=== PATIENT | male | born 1985 | race American Indian/Alaskan Native ===

== ENCOUNTER 2018-02-16 13:17 | Emergency (ER) | payer MEDICAID ==
--- NOTE | 2018-02-16 13:57 | XRay Report ---
RIGHT ANKLE, 2 views: History: right ankle pain. Bone mineralization is normal. An oblique, mildly displaced fracture is identified in the distal shaft of the fibula. The distal tibia and talar dome are intact. Mild soft tissue swelling. IMPRESSION: Distal fibular fracture.
--- NOTE | 2018-02-16 14:29 | Emergency Department Report ---
ED Lower Extremity HPI - General Chief Complaint: Extremity Injury, Lower Stated Complaint: HIGH ANKLE SPRAIN Time Seen by Provider: 02/16/18 14:03 Source: patient Mode of arrival: Ambulatory Limitations: No Limitations - History of Present Illness Initial Comments: 32-year-old male past medical history bipolar disorder presents with complaint of right distal ankle pain. Patient states that while at a [employer] yesterday he lost balance tripped and hurt his distal right ankle. Did not hit his head or completely lose consciousness as per his history. Patient is currently awake alert and oriented 3 not in acute distress. Patient is ambulating well with a cane. Patient denies injuries to any other body parts. MD Complaint: leg injury -: Last night Injury: Ankle: Right Place: home Severity: moderate Severity scale (0 -10): 6 Context: fall Associated Symptoms: snap/pop sensation, swelling, able to partially bear weight - Related Data Home Medications Medication Instructions Recorded Confirmed Last Taken Cogentin 1 mg PO BID 12/10/14 12/10/14 07/28/14 risperiDONE [RisperDAL] 1 mg PO DAILY 12/10/14 12/10/14 07/28/14 Previous Rx's Medication Instructions Recorded Last Taken Type Albuterol Sulfate [Proventil HFA] 1 - 2 puff IH Q4H PRN #1 hfa.aer.ad 12/10/14 Unknown Rx Benztropine [Cogentin] 1 mg PO DAILY #30 tab 12/10/14 Unknown Rx Loratadine [Claritin] 10 mg PO DAILY #20 tablet 12/10/14 Unknown Rx Sodium Chloride/Sodium Bicarb 75 ml NS TID #1 spray 12/10/14 Unknown Rx [[place] Mist Saline [place]] risperiDONE [Risperdal] 1 mg PO QDAY #30 tab 12/10/14 Unknown Rx HYDROcodone/APAP 5-325 [[place] 1 each PO Q6HR PRN #12 tablet 02/16/18 Unknown Rx 5/325] Ibuprofen [Motrin] 800 mg PO Q8HR PRN #25 tablet 02/16/18 Unknown Rx Allergies Allergy/AdvReac Type Severity Reaction Status Date / Time No Known Allergies Allergy Unverified 12/10/14 00:12 ED Review of Systems ROS: Stated complaint: HIGH ANKLE SPRAIN Other details as noted in HPI Constitutional: denies: chills, fever Eyes: denies: eye pain, eye discharge, vision change ENT: denies: ear pain, throat pain Respiratory: denies: cough, shortness of breath, wheezing Cardiovascular: denies: chest pain, palpitations Endocrine: no symptoms reported Gastrointestinal: denies: abdominal pain, nausea, diarrhea Genitourinary: denies: urgency, dysuria Musculoskeletal: as per HPI. denies: back pain, joint swelling, arthralgia Skin: denies: rash, lesions Neurological: denies: headache, weakness, paresthesias Psychiatric: denies: anxiety, depression Hematological/Lymphatic: denies: easy bleeding, easy bruising ED Past Medical Hx - Past Medical History Hx Psychiatric Treatment: Yes (BIPOLAR) - Surgical History Additional Surgical History: right hip sx - Social History Smoking Status: Current Every Day Smoker Substance Use Type: Alcohol - Medications Home Medications: Home Medications Medication Instructions Recorded Confirmed Last Taken Type Albuterol Sulfate [Proventil HFA] 1 - 2 puff IH Q4H PRN #1 hfa.aer.ad 12/10/14 Unknown Rx Benztropine [Cogentin] 1 mg PO DAILY #30 tab 12/10/14 Unknown Rx Cogentin 1 mg PO BID 12/10/14 12/10/14 07/28/14 History Loratadine [Claritin] 10 mg PO DAILY #20 tablet 12/10/14 Unknown Rx Sodium Chloride/Sodium Bicarb 75 ml NS TID #1 spray 12/10/14 Unknown Rx [[place] Mist Saline [place]] risperiDONE [RisperDAL] 1 mg PO DAILY 12/10/14 12/10/14 07/28/14 History risperiDONE [Risperdal] 1 mg PO QDAY #30 tab 12/10/14 Unknown Rx HYDROcodone/APAP 5-325 [[place] 1 each PO Q6HR PRN #12 tablet 02/16/18 Unknown Rx 5/325] Ibuprofen [Motrin] 800 mg PO Q8HR PRN #25 tablet 02/16/18 Unknown Rx ED Physical Exam - General Limitations: No Limitations General appearance: alert, in no apparent distress - Head Head exam: Present: atraumatic, normocephalic - Eye Eye exam: Present: normal appearance, PERRL, EOMI - ENT ENT exam: Present: mucous membranes moist - Neck Neck exam: Present: normal inspection - Respiratory Respiratory exam: Present: normal lung sounds bilaterally. Absent: respiratory distress - Cardiovascular Cardiovascular Exam: Present: regular rate, normal rhythm. Absent: systolic murmur, diastolic murmur, rubs, gallop - GI/Abdominal GI/Abdominal exam: Present: soft, normal bowel sounds - Rectal Rectal exam: Present: deferred - Extremities Exam Extremities exam: Present: normal inspection - Expanded Lower Extremity Exam Right Knee exam: Present: normal inspection, full ROM Lower Leg exam: Present: tenderness, swelling, ecchymosis Ankle exam: Present: tenderness Neuro vascular tendon exam: Present: no vascular compromise (distal pulses strong to palpation) Gait: Positive: antalgic 1 - Pain on palpation here with slight ecchymosis lateral - Back Exam Back exam: Present: normal inspection - Neurological Exam Neurological exam: Present: alert, oriented X3, CN II-XII intact, normal gait - Psychiatric Psychiatric exam: Present: normal affect, normal mood - Skin Skin exam: Present: warm, dry, intact, normal color. Absent: rash ED Course Vital Signs 02/16/18 13:28 Temperature 98.8 F Pulse Rate 73 Respiratory 16 Rate Blood Pressure 128/79 O2 Sat by Pulse 95 Oximetry ED Lower Extremity MDM - Medical Decision Making A/P: Distal fibular fracture 1-case discussed with Dr. Romero, I will refer patient to outpatient follow-up with orthopedics 2-neurovascular exam right lower extremity clinically intact 3-posterior splint and crutches 4- motrin and [place] when necessary Critical care attestation.: If time is entered above; I have spent that time in minutes in the direct care of this critically ill patient, excluding procedure time. ED Disposition Clinical Impression: Fracture of distal end of right fibula Qualifiers: Encounter type: initial encounter Fracture type: closed Fracture morphology: other fracture Qualified Code(s): S82.831A - Other fracture of upper and lower end of right fibula, initial encounter for closed fracture Disposition: - TO HOME OR SELFCARE Is pt being admited?: No Does the pt Need Aspirin: No Condition: Stable Instructions: Leg Fracture (ED), Crutch Instructions (ED), Splint Care (ED) Prescriptions: HYDROcodone/APAP 5-325 [[place] 5/325] 1 each PO Q6HR PRN #12 tablet PRN Reason: Pain Ibuprofen [Motrin] 800 mg PO Q8HR PRN #25 tablet PRN Reason: Pain , Severe (7-10) Referrals: HENRI ROMERO MD [Staff Physician] - 3-5 Days Time of Disposition: 14:29
[2018-02-16] MEDS ORDERED: MOTRIN PO ONE (14:31)
[2018-02-16] MEDS ORDERED: NORCO 5/325 PO ONE (14:31)
[2018-02-16 15:02] VITALS: BP 126/72
== END 2018-02-16 15:00 | disposition home or self-care (01) ==
LOC: ED 13:17
DX: S82.831A Other fracture of upper and lower end of right fibula, initial encounter for closed fracture (principal); F17.200 Nicotine dependence, unspecified, uncomplicated; F31.9 Bipolar disorder, unspecified; Z79.899 Other long term (current) drug therapy; W01.0XXA Fall on same level from slipping, tripping and stumbling without subsequent striking against object, initial encounter; Y93.89 Activity, other specified; Y99.8 Other external cause status; Y92.019 Unspecified place in single-family (private) house as the place of occurrence of the external cause

== ENCOUNTER 2020-07-04 11:44 | Emergency (ER) | payer MEDICAID ==
[2020-07-04 11:59] VITALS: BP 146/100
== END 2020-07-04 12:00 | disposition left against medical advice (07) ==
LOC: ED 11:44
DX: M25.572 Pain in left ankle and joints of left foot (principal); Z53.21 Procedure and treatment not carried out due to patient leaving prior to being seen by health care provider

== ENCOUNTER 2021-11-13 23:36 | Emergency (ER) | payer OTHER, MEDICAID ==
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
[2021-11-14 04:45] VITALS: BP 138/89
== END 2021-11-14 04:39 ==
LOC: EEVIPCON 23:36 → ED 23:36
DX: S01.01XA Laceration without foreign body of scalp, initial encounter (principal); F31.9 Bipolar disorder, unspecified; Z79.899 Other long term (current) drug therapy; X58.XXXA Exposure to other specified factors, initial encounter; Y93.89 Activity, other specified; Y92.89 Other specified places as the place of occurrence of the external cause; Y99.8 Other external cause status
CPT/HCPCS: 99283